=== PATIENT | male | born 1955 | race Caucasian/White ===

== ENCOUNTER → 2017-06-26 07:06 | Outpatient (CLI) | payer OTHER | END | disposition home or self-care (01) | LOC: LAB 07:06 | DX: D69.6 Thrombocytopenia, unspecified (principal); Z13.1 Encounter for screening for diabetes mellitus; Z13.29 Encounter for screening for other suspected endocrine disorder; Z13.0 Encounter for screening for diseases of the blood and blood-forming organs and certain disorders involving the immune mechanism; Z12.5 Encounter for screening for malignant neoplasm of prostate; Z12.11 Encounter for screening for malignant neoplasm of colon; F17.299 Nicotine dependence, other tobacco product, with unspecified nicotine-induced disorders ==

== ENCOUNTER 2017-07-01 06:35 | Outpatient (CLI) | payer OTHER | END 2017-07-01 06:45 | disposition home or self-care (01) | LOC: LAB 06:35 | DX: D69.6 Thrombocytopenia, unspecified (principal); Z13.1 Encounter for screening for diabetes mellitus; Z13.29 Encounter for screening for other suspected endocrine disorder; Z13.0 Encounter for screening for diseases of the blood and blood-forming organs and certain disorders involving the immune mechanism; Z12.5 Encounter for screening for malignant neoplasm of prostate; Z12.11 Encounter for screening for malignant neoplasm of colon; F17.299 Nicotine dependence, other tobacco product, with unspecified nicotine-induced disorders ==

== ENCOUNTER 2017-07-02 07:43 | Outpatient (CLI) | payer OTHER | END 2017-07-02 07:53 | disposition home or self-care (01) | LOC: SONOGRAMA 07:43 | DX: D69.6 Thrombocytopenia, unspecified (principal) ==

== ENCOUNTER 2017-07-02 07:44 | Outpatient (CLI) | payer OTHER | END 2017-07-02 07:54 | disposition home or self-care (01) | LOC: RAD 07:44 | DX: D69.6 Thrombocytopenia, unspecified (principal); Z13.1 Encounter for screening for diabetes mellitus; Z13.29 Encounter for screening for other suspected endocrine disorder; Z13.0 Encounter for screening for diseases of the blood and blood-forming organs and certain disorders involving the immune mechanism; Z12.5 Encounter for screening for malignant neoplasm of prostate; F17.299 Nicotine dependence, other tobacco product, with unspecified nicotine-induced disorders ==

== ENCOUNTER 2019-10-19 07:19 | Outpatient (CLI) | payer OTHER | END 2019-10-19 07:32 | disposition home or self-care (01) | LOC: SONOGRAMA 07:19 | PROVIDERS: ATTEND Specialist/Technologist, Other Nephrology | DX: E11.21 Type 2 diabetes mellitus with diabetic nephropathy (principal); N18.1 Chronic kidney disease, stage 1 ==

== ENCOUNTER → 2019-11-03 | Outpatient (CLI) | payer OTHER | END | disposition home or self-care (01) | LOC: TOM 08:13 | DX: R91.1 Solitary pulmonary nodule (principal) ==

== ENCOUNTER → 2020-01-15 07:50 | Outpatient (CLI) | payer OTHER | END | disposition home or self-care (01) | LOC: LAB 07:50 | PROVIDERS: ATTEND Internal Medicine | DX: B18.2 Chronic viral hepatitis C (principal); K74.60 Unspecified cirrhosis of liver ==

== ENCOUNTER 2020-03-28 07:04 | Outpatient (CLI) | payer OTHER | END 2020-03-28 07:16 | disposition home or self-care (01) | LOC: TOM 07:04 | DX: Q33.8 Other congenital malformations of lung (principal); R91.1 Solitary pulmonary nodule; J84.178 Other interstitial pulmonary diseases with fibrosis in diseases classified elsewhere ==

== ENCOUNTER 2020-07-27 07:33 | Outpatient (CLI) | payer OTHER | END 2020-07-27 07:53 | disposition home or self-care (01) | LOC: LAB 07:33 | PROVIDERS: ATTEND General Practice | DX: Z12.11 Encounter for screening for malignant neoplasm of colon (principal); B18.8 Other chronic viral hepatitis; D64.89 Other specified anemias; Z13.89 Encounter for screening for other disorder; Z13.220 Encounter for screening for lipoid disorders; Z12.5 Encounter for screening for malignant neoplasm of prostate; E11.00 Type 2 diabetes mellitus with hyperosmolarity without nonketotic hyperglycemic-hyperosmolar coma (NKHHC) ==

== ENCOUNTER 2020-07-29 07:12 | Outpatient (CLI) | payer OTHER | END 2020-07-29 07:22 | disposition home or self-care (01) | LOC: LAB 07:12 | PROVIDERS: ATTEND General Practice | DX: Z12.5 Encounter for screening for malignant neoplasm of prostate (principal); B18.8 Other chronic viral hepatitis; Z13.89 Encounter for screening for other disorder; Z13.220 Encounter for screening for lipoid disorders; D64.89 Other specified anemias; Z12.11 Encounter for screening for malignant neoplasm of colon ==

== ENCOUNTER → 2020-10-25 06:17 | Outpatient (CLI) | payer OTHER | END | disposition home or self-care (01) | LOC: LAB 06:17 | PROVIDERS: ATTEND Internal Medicine Gastroenterology | DX: B18.2 Chronic viral hepatitis C (principal) ==

== ENCOUNTER 2020-11-01 08:00 | Outpatient (CLI) | payer OTHER | END 2020-11-01 08:30 | disposition home or self-care (01) | LOC: PPH VACUNA 08:00 | DX: Z23 Encounter for immunization (principal) ==

== ENCOUNTER 2020-11-22 08:00 | Outpatient (CLI) | payer OTHER | END 2020-11-22 08:30 | disposition home or self-care (01) | LOC: PPH VACUNA 08:00 | DX: Z23 Encounter for immunization (principal) ==

== ENCOUNTER 2021-05-15 02:00 | Outpatient (CLI) | payer OTHER | END 2021-05-15 02:30 | disposition home or self-care (01) | LOC: PPH VACUNA 02:00 | PROVIDERS: ATTEND Emergency Medicine Pediatric Emergency Medicine | DX: Z23 Encounter for immunization (principal) ==

== ENCOUNTER 2022-11-07 06:45 | Outpatient (CLI) | payer OTHER | END 2022-11-07 06:46 | disposition home or self-care (01) | LOC: LAB 06:45 | DX: M25.561 Pain in right knee (principal); Z12.11 Encounter for screening for malignant neoplasm of colon; Z12.5 Encounter for screening for malignant neoplasm of prostate; R80.9 Proteinuria, unspecified; E11.65 Type 2 diabetes mellitus with hyperglycemia; N39.0 Urinary tract infection, site not specified; D50.9 Iron deficiency anemia, unspecified ==

== ENCOUNTER 2022-11-08 07:46 | Outpatient (CLI) | payer OTHER | END 2022-11-08 07:47 | disposition home or self-care (01) | LOC: LAB 07:46 | DX: M25.561 Pain in right knee (principal); Z12.11 Encounter for screening for malignant neoplasm of colon; Z12.5 Encounter for screening for malignant neoplasm of prostate; R80.9 Proteinuria, unspecified; E11.65 Type 2 diabetes mellitus with hyperglycemia; N39.0 Urinary tract infection, site not specified; D50.9 Iron deficiency anemia, unspecified ==

== ENCOUNTER → 2024-01-28 06:07 | Outpatient (CLI) | payer OTHER ==
[2024-01-28 07:26] LABS: HEMATOCRIT 40.3 % (39.0-48.0); HEMOGLOBIN 13.6 g/dL (13-16.00); MEAN CELL VOLUME 82.9 fL (80.0-100.00); MEAN CORPUSCULAR HGB CONC 33.8 g/dl (32.0-36.0); PLATELET COUNT 140 K/uL (150-450); RED BLOOD COUNT 4.86 M/uL (4.00-6.00); RED CELL DISTRIBUTION WIDTH 14.3 % (11.5-14.5)
== END | disposition home or self-care (01) ==
LOC: LAB 06:07
PROVIDERS: ATTEND General Practice
DX: K76.9 Liver disease, unspecified (principal); D69.6 Thrombocytopenia, unspecified; D72.819 Decreased white blood cell count, unspecified

== ENCOUNTER 2024-01-28 07:03 | Outpatient (CLI) | payer OTHER | END 2024-01-28 07:11 | disposition home or self-care (01) | LOC: SONOGRAMA 07:03 | DX: B18.2 Chronic viral hepatitis C (principal) ==

== ENCOUNTER 2024-12-16 08:32 | Outpatient (CLI) | payer OTHER | END 2024-12-16 08:34 | disposition home or self-care (01) | LOC: SONOGRAMA 08:32 | PROVIDERS: ATTEND General Practice | DX: K76.9 Liver disease, unspecified (principal); K74.60 Unspecified cirrhosis of liver ==

== ENCOUNTER 2024-12-23 07:02 | Outpatient (CLI) | payer OTHER | END 2024-12-23 07:04 | disposition home or self-care (01) | LOC: SONOGRAMA 07:02 | PROVIDERS: ATTEND General Practice | DX: R10.9 Unspecified abdominal pain (principal); K76.9 Liver disease, unspecified; K74.60 Unspecified cirrhosis of liver; K74.00 Hepatic fibrosis, unspecified; R14.1 Gas pain; R14.2 Eructation ==